=== PATIENT | male | born 1990 | race Two or more races ===

== ENCOUNTER 2019-02-17 03:48 | Emergency (ER) | payer OTHER ==
[~2019-02-17] VITALS: Ht 182.9 cm; Wt 70.0 kg
[2019-02-17 04:23] VITALS: BP 122/81
[2019-02-17] MEDS ORDERED: LIDOCAINE HCL/PF 1% 10 MG/ML 5ML VIAL IJ ONE (06:45)
[2019-02-17] MEDS ORDERED: BACITRACIN ZINC OINT UDPKT TOP ONE (06:45)
[2019-02-17] MEDS ORDERED: TETANUS, DIPHTHERIA, PERTUSSIS VAC/PF 0.5ML (>7YR OLD) IM ONE (06:45)
[2019-02-17] MEDS ORDERED: IBUPROFEN 600MG TABLET PO ONE (08:15)
== END 2019-02-17 08:19 | disposition home or self-care (01) ==
LOC: ER 03:48 → EDSEX 03:48 → ER 08:19
DX: S01.81XA Laceration without foreign body of other part of head, initial encounter (principal); W01.198A Fall on same level from slipping, tripping and stumbling with subsequent striking against other object, initial encounter; Y93.89 Activity, other specified; Y92.89 Other specified places as the place of occurrence of the external cause; F17.210 Nicotine dependence, cigarettes, uncomplicated; Z23 Encounter for immunization
CPT/HCPCS: 12011; 90471; 90715; 99283; J3490; Z7610